=== PATIENT | female | born 1945 | race Two or more races ===

== ENCOUNTER 2020-11-30 02:28 | Emergency (ER) | payer MEDICARE, MEDICAID ==
[~2020-11-30] VITALS: Ht 152.4 cm; Wt 79.8 kg
[2020-11-30 04:51] LABS: Basophils # (auto) 0 10 ^3/uL (0-0.2); Basophils % (auto) 0.2 % (0.0-2.0); Eosinophils # (auto) 0 10 ^3/uL (0-0.8); Eosinophils % (auto) 0.3 % (0.0-7.0); Hematocrit 41.6 % (36.0-46.0); Hemoglobin 13.8 g/dL (12.2-16.2); Lymphocytes # (auto) 0.8 10 ^3/uL (0.4-5.4); Lymphocytes % (auto) 8.7 % (10.0-50.0); Mean Corpuscular Hemoglobin 28.5 pg (28.0-32.0); Mean Corpuscular Hgb Conc. 33.3 g/dL (32.0-36.0); Mean Corpuscular Volume 85.6 fL (80.0-100.0); Monocytes # (auto) 0.5 10 ^3/uL (0-1.3); Monocytes % (auto) 4.9 % (0.0-12.0); Neutrophils # (auto) 8.1 10 ^3/uL (1.6-8.6); Neutrophils % (auto) 85.9 % (37.0-80.0); Nucleated Red Blood Cells % 0.1 %; Platelet Count (auto) 190 10^3/uL (140-450); Red Blood Cells 4.86 10^6/uL (4.0-5.20); Red Cell Distribution Width 13.8 % (11.8-14.3); White Blood Cell 9.5 10^3/uL (4.4-10.8)
[2020-11-30 05:10] LABS: Albumin 3.3 g/dL (3.4-5.0); Calcium 8.6 mg/dL (8.5-10.1); Potassium 3.9 mmol/L (3.5-5.1)
[2020-11-30 05:15] LABS: BUN/Creatinine Ratio 13.9; Bilirubin, Total 0.4 mg/dL (0.2-1.0); Total Protein 7.8 g/dL (6.4-8.2)
[2020-11-30 07:00] LABS: INR 0.97 (0.9-1.15); Partial Thromboplastin Time 28.9 sec (23.0-31.2)
[2020-11-30] MEDS ORDERED: ACETAMINOPHEN 500 MG TAB PO ONE (07:15)
[2020-11-30 07:19] VITALS: BP 151/43
== END 2020-11-30 07:40 | disposition home or self-care (01) ==
LOC: ER 02:28 → EDBD 02:28 → ER 07:40
DX: R50.83 Postvaccination fever (principal); T50.Z95A Adverse effect of other vaccines and biological substances, initial encounter; T78.40XA Allergy, unspecified, initial encounter; R73.9 Hyperglycemia, unspecified; Z20.822 Contact with and (suspected) exposure to COVID-19; X58.XXXA Exposure to other specified factors, initial encounter
CPT/HCPCS: 36415; 71045; 80053; 85025; 85379; 85610; 85730; 87426; 99284; C9803; U0003

== ENCOUNTER 2022-07-15 16:54 | Inpatient (IN) | payer MEDICARE, MEDICAID ==
[~2022-07-15] VITALS: Ht 167.6 cm; Wt 100.5 kg
[2022-07-15 19:00] LABS: Basophils # (auto) 0.2 10 ^3/uL (0-0.2); Basophils % (auto) 2.4 % (0.0-2.0); Eosinophils # (auto) 0.1 10 ^3/uL (0-0.8); Eosinophils % (auto) 1.4 % (0.0-7.0); Hemoglobin 12.1 g/dL (12.2-16.2); Lymphocytes # (auto) 0.9 10 ^3/uL (0.4-5.4); Lymphocytes % (auto) 11.6 % (10.0-50.0); Mean Corpuscular Hemoglobin 27.3 pg (28.0-32.0); Mean Corpuscular Hgb Conc. 31.7 g/dL (32.0-36.0); Monocytes # (auto) 0.4 10 ^3/uL (0-1.3); Monocytes % (auto) 5.5 % (0.0-12.0); Neutrophils # (auto) 6.1 10 ^3/uL (1.6-8.6); Neutrophils % (auto) 79.1 % (37.0-80.0); Red Blood Cells 4.42 10^6/uL (4.0-5.20); Red Cell Distribution Width 13.4 % (11.8-14.3); White Blood Cell 7.6 10^3/uL (4.4-10.8)
[2022-07-15 19:03] LABS: Albumin 3.5 g/dL (3.4-5.0); BUN/Creatinine Ratio 19.4; Calcium 8.9 mg/dL (8.5-10.1); Magnesium 2.3 mg/dL (1.6-2.6); Potassium 4.7 mmol/L (3.5-5.1)
[2022-07-15 19:06] LABS: Bilirubin, Total 0.5 mg/dL (0.2-1.0); Total Protein 7.2 g/dL (6.4-8.2)
[2022-07-15 20:32] LABS: Urine Bacteria NONE SEEN /hpf (None Seen); Urine Blood Negative /uL (Negative); Urine Specific Gravity 1.006 (1.001-1.035); Urine WBC 1 /hpf (0 - 5)
[2022-07-15] MEDS ORDERED: FUROSEMIDE 40 MG/4 ML VIAL IV ONE (22:30)
[2022-07-15] MEDS ORDERED: DEXTROSE (50%) 50ML SYRG IV PRN (23:45)
[2022-07-15] MEDS ORDERED: MORPHINE SULFATE INJ 2 MG/ml SYRG IV PRN (23:45)
[2022-07-15] MEDS ORDERED: TEMAZEPAM 15 MG CAP PO PRN (23:45)
[2022-07-15] MEDS ORDERED: NITROGLYCERIN 0.4 MG SL TAB SL PRN (23:45)
[2022-07-15] MEDS ORDERED: ONDANSETRON HCL 4 MG/2 ML VIAL IV PRN (23:45)
[2022-07-16] MEDS: ACCU-CHEK COMFORT CURVE STRIP VI SCH ×3 (00:42→12:00)
[2022-07-16] MEDS: InsuLIN REG 1unit/0.01ml Soln (100units/ml) SC SCH ×3 (00:44→12:00)
[2022-07-16] MEDS: cloNIDine HCL 0.1 MG TAB PO PRN ×3 (04:35→17:30)
[2022-07-16 06:15] LABS: Basophils # (auto) 0.1 10 ^3/uL (0-0.2); Basophils % (auto) 1.2 % (0.0-2.0); Eosinophils # (auto) 0.2 10 ^3/uL (0-0.8); Eosinophils % (auto) 2.4 % (0.0-7.0); Hematocrit 35.6 % (36.0-46.0); Hemoglobin 11.8 g/dL (12.2-16.2); Lymphocytes # (auto) 2.2 10 ^3/uL (0.4-5.4); Lymphocytes % (auto) 32.2 % (10.0-50.0); Mean Corpuscular Hgb Conc. 33.1 g/dL (32.0-36.0); Mean Corpuscular Volume 84.7 fL (80.0-100.0); Monocytes # (auto) 0.6 10 ^3/uL (0-1.3); Monocytes % (auto) 9.4 % (0.0-12.0); Neutrophils # (auto) 3.7 10 ^3/uL (1.6-8.6); Neutrophils % (auto) 54.8 % (37.0-80.0); Nucleated Red Blood Cells % 0.1 %; Red Cell Distribution Width 13.2 % (11.8-14.3); White Blood Cell 6.7 10^3/uL (4.4-10.8)
[2022-07-16 06:31] LABS: Albumin 3.1 g/dL (3.4-5.0); Calcium 8.7 mg/dL (8.5-10.1); Potassium 3.5 mmol/L (3.5-5.1)
[2022-07-16 06:34] LABS: Bilirubin, Total 0.5 mg/dL (0.2-1.0); Total Protein 6.8 g/dL (6.4-8.2)
[2022-07-16] MEDS: PANTOPRAZOLE 40 MG TAB PO SCH (09:57)
[2022-07-16] MEDS ORDERED: FUROSEMIDE 40 MG TAB PO SCH (10:00)
[2022-07-16] MEDS: ENOXAPARIN SOD 30 MG/0.3 ML SYRINGE SC SCH (10:00)
[2022-07-16] MEDS: LISINOPRIL 10 MG TAB PO SCH (10:06)
[2022-07-16] MEDS: NIFEdipine ER 30 MG TAB PO SCH (10:06)
[2022-07-16] MEDS ORDERED: ATEN100T PO (18:38)
[2022-07-16] MEDS ORDERED: FURO40TA4 PO (18:38)
[2022-07-16] MEDS ORDERED: NIFE1TAB36 PO (18:38)
[2022-07-16] MEDS ORDERED: GLIM-6 PO (18:38)
[2022-07-16] MEDS ORDERED: AMLO-489 PO (18:38)
[2022-07-16] MEDS: ACETAMINOPHEN 325 MG TAB PO PRN (18:50)
[2022-07-16] MEDS ORDERED: PNEUMOCOCCAL VACC POLYS 25 MCG/0.5 ML VIAL IM ONE (19:30)
[2022-07-16 22:00] VITALS: BP 149/53
[2022-07-17] MEDS: cloNIDine HCL 0.1 MG TAB PO PRN (04:41)
[2022-07-17 05:00] VITALS: BP 170/47
[2022-07-17 08:00] VITALS: BP 161/46
[2022-07-17 09:00] VITALS: BP 161/46
[2022-07-17] MEDS: LISINOPRIL 10 MG TAB PO SCH (11:03)
[2022-07-17] MEDS: ENOXAPARIN SOD 30 MG/0.3 ML SYRINGE SC SCH (11:04)
[2022-07-17] MEDS: NIFEdipine ER 30 MG TAB PO SCH (11:04)
[2022-07-17] MEDS: PANTOPRAZOLE 40 MG TAB PO SCH (11:04)
[2022-07-17] MEDS: FUROSEMIDE 40 MG/4 ML VIAL IV SCH (11:05)
[2022-07-17 13:00] VITALS: BP 157/42
[2022-07-17 16:57] VITALS: BP 149/40
[2022-07-17 22:00] VITALS: BP 159/56
[2022-07-18 05:30] VITALS: BP 156/57
[2022-07-18 08:00] VITALS: BP 155/51
[2022-07-18 08:27] VITALS: BP 155/51
[2022-07-18] MEDS: PANTOPRAZOLE 40 MG TAB PO SCH (09:32)
[2022-07-18] MEDS: ENOXAPARIN SOD 30 MG/0.3 ML SYRINGE SC SCH (09:32)
[2022-07-18] MEDS: NIFEdipine ER 30 MG TAB PO SCH (09:32)
[2022-07-18] MEDS: LISINOPRIL 10 MG TAB PO SCH (09:32)
[2022-07-18] MEDS: FUROSEMIDE 40 MG/4 ML VIAL IV SCH (09:33)
[2022-07-18] MEDS ORDERED: hydrALAZINE HCL 20 MG/ML VL IV PRN (11:45)
[2022-07-18 12:48] VITALS: BP 172/44
[2022-07-18 13:28] VITALS: BP 154/41
[2022-07-18] MEDS: ACETAMINOPHEN 325 MG TAB PO PRN (20:27)
[2022-07-18 22:35] VITALS: BP 145/51
[2022-07-19 05:00] VITALS: BP 161/63
[2022-07-19] MEDS: cloNIDine HCL 0.1 MG TAB PO PRN (06:07)
[2022-07-19 06:37] LABS: Basophils # (auto) 0 10 ^3/uL (0-0.2); Basophils % (auto) 0.7 % (0.0-2.0); Eosinophils # (auto) 0.1 10 ^3/uL (0-0.8); Eosinophils % (auto) 1.4 % (0.0-7.0); Hematocrit 37.3 % (36.0-46.0); Hemoglobin 12.1 g/dL (12.2-16.2); Lymphocytes # (auto) 1.5 10 ^3/uL (0.4-5.4); Lymphocytes % (auto) 22.5 % (10.0-50.0); Mean Corpuscular Hemoglobin 27.5 pg (28.0-32.0); Mean Corpuscular Hgb Conc. 32.3 g/dL (32.0-36.0); Monocytes # (auto) 0.6 10 ^3/uL (0-1.3); Monocytes % (auto) 9.5 % (0.0-12.0); Neutrophils # (auto) 4.5 10 ^3/uL (1.6-8.6); Neutrophils % (auto) 65.9 % (37.0-80.0); Nucleated Red Blood Cells % 0.1 %; Red Blood Cells 4.39 10^6/uL (4.0-5.20); Red Cell Distribution Width 13.2 % (11.8-14.3); White Blood Cell 6.8 10^3/uL (4.4-10.8)
[2022-07-19 06:48] LABS: BUN/Creatinine Ratio 26.5; Calcium 9.2 mg/dL (8.5-10.1); Potassium 3.8 mmol/L (3.5-5.1)
[2022-07-19 08:00] VITALS: BP 135/48
[2022-07-19 09:00] VITALS: BP 135/48
[2022-07-19] MEDS: PANTOPRAZOLE 40 MG TAB PO SCH (11:14)
[2022-07-19] MEDS: LISINOPRIL 10 MG TAB PO SCH (11:14)
[2022-07-19] MEDS: NIFEdipine ER 30 MG TAB PO SCH (11:14)
[2022-07-19] MEDS: FUROSEMIDE 40 MG/4 ML VIAL IV SCH (11:14)
[2022-07-19] MEDS: ENOXAPARIN SOD 30 MG/0.3 ML SYRINGE SC SCH (11:15)
[2022-07-19] MEDS ORDERED: FURO40TA4 PO (12:17)
[2022-07-19 12:44] VITALS: BP 146/40
[2022-07-19 12:55] VITALS: BP 135/48
[2022-07-19] MEDS ORDERED: PNEUMOCOCCAL VACC POLYS 25 MCG/0.5 ML VIAL IM ONE ×2 (13:30→14:00)
== END 2022-07-19 14:20 | disposition home or self-care (01) | DRG 194 ==
LOC: ER 16:54 → EDBD 16:54 → TELE 23:38 → TELE-WESTW 07-16 17:12
PROVIDERS: ADMIT Nurse Practitioner; ATTEND Internal Medicine
DX: I13.0 Hypertensive heart and chronic kidney disease with heart failure and stage 1 through stage 4 chronic kidney disease, or unspecified chronic kidney disease (principal); J96.01 Acute respiratory failure with hypoxia; I50.33 Acute on chronic diastolic (congestive) heart failure; E11.22 Type 2 diabetes mellitus with diabetic chronic kidney disease; N18.30 Chronic kidney disease, stage 3 unspecified; E11.40 Type 2 diabetes mellitus with diabetic neuropathy, unspecified; Z20.822 Contact with and (suspected) exposure to COVID-19
CPT/HCPCS: 36415; 36600; 71045; 73030; 80048; 80053; 81001; 82805; 83735; 83880; 84484; 85025; 93306; 96372; 96374; G0378

== ENCOUNTER 2025-06-28 03:13 | Inpatient (IN) | payer MEDICARE, MEDICAID ==
[2025-06-28] VITALS (36 sets, daily range): BP systolic 128–182; BP diastolic 36–62; PULSE 68–100; RESP 11–99; TEMP 97.4–98.2; O2SAT 88–98
[~2025-06-28] VITALS: Ht 165.1 cm; Wt 95.2 kg
[~2025-06-28 03:13] MED LIST: AMLO1TAB22 PO; ATEN100T PO; FURO40TA4 PO; GLIM2TAB94 PO; NIFE1TAB36 PO
[2025-06-28] MEDS: methylPREDNISolone SOD SUCC 125 MG/2 ML VL IV ONE (03:25)
--- NOTE | 2025-06-28 03:28 | ED.PDOC ---
SOB-HPI HPI Comments HPI: 80 year old female presents to the emergency department with a chief complaint of shortness of breath onset today (06/28/25) about 10 minutes prior to EMS arrival. Per EMS, patient was discharged from [facility] ,5 was admitted for 5 days due to Pneumonia. Patient was on 2L O2 at home, shortness of breath was worsening, 911 was called. Upon EMS arrival, patient's O2 sat was 70% on RA, was placed on NRB, with no improvement. Patient was given Med Neb treatment, placed on C-pap, O2 improved to 80%. Grandson states patient is currently on Diuretic medication, unknown if she is on blood thinner. No other symptoms or modifying factors present at this time. Initial Vitals BP: 180/110 HR: 1014 RR: O2: 70%on RA Temp: Past Medical History: CHF, CKF, HTN, DM Past Surgical History:Denies Social History: Denies ETOH, smoking, and drug use. Medications: diuretic Allergies: NKDA HPI: Poor Historian. Patient arrives on a CPAP machine. She was transitioned to a BiPAP machine on arrival. History obtained from the nephew/family member at bedside initially. Patient completed the course of antibiotics for recent diagnosis of pneumonia. 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 Symptoms happened suddenly over a course of 5-10 minutes lower likely consistent with pulmonary edema. She is on a water pill at home and supplemental oxygen 2472 L nasal cannula. Patient was hypoxic at the scene REVIEW OF SYSTEMS: CONSTITUTIONAL: Denies acute: fever, diaphoresis, chills, generalized weakness. HEAD: Denies acute: headache, photophobia Eyes: Denies acute: Double vision, vision loss, eye pain, eye discharge. EARS: Denies acute: tinnitus, hearing loss, ear discharge, ear pain, THROAT: Denies acute: sore throat, swelling, difficulty swallowing , pain with swallowing, change in voice. NECK: Denies acute: neck pain, neck swelling, stiff neck. HEART: Denies acute : chest pain, palpitations, LUNGS: Denies acute: SOB, wheezing, cough, hemoptysis ABDOMEN: Denies acute: abdominal pain, Nausea, Vomiting, diarrhea, melena , hematemesis, hematochezia SKIN: Denies acute: rash, redness, lesions, itchiness. EXTREMITIES: Denies acute: calf pain, numbness, tingling, weakness, denies pain in extremity. Denies acute: Low back pain. Neuro: Denies acute: focal neurological deficit, motor or sensory focal neurological deficit, tremors, seizure like activity, confusion, dizziness, change in mental status, loss of bowel or bladder function, cauda equina like symptoms. : Denies acute: dysuria, hematuria, flank pain, increase in urinary frequency. PSYCH: Denies acute: hallucination, suicidal ideation, homicidal ideation. FEMALE: Denies acute: abnormal vaginal bleeding, foul odor, unusual discharge. PHYSICAL EXAM: General: -----moderate---acute distress, awake and alert. Head: normocephalic, atraumatic. Neck: supple, trachea is midline, no swelling. Throat: Normal phonation. Eyes:, no erythema, no purulent discharge, no proptosis, no icterus. Heart: regular rate, regular rhythm, no significant murmur appreciated. Lungs: Moderate respiratory distress, No wheezing, minimal rhonchi, generalized crackles. No stridors Abdomen: non tender to palpation, non distended, soft, no guarding, no rebound, + bowel sounds. Obese Neuro: Awake, Alert, oriented to name, self, situation, follows commands GCS=15. Speech is normal. Skin: no petechia, no purpura, no cyanosis, non-pale, not jaundice. Lower extremities: --1/4 bilateral - Pitting edema no deformity, no focal swelling, no calf TTP. Makes eye contact. moves all four extremities. Face: no apparent facial droop. ED COURSE: DISCLAIMER: This medical document was created using an electronic medical record system with voice recognition software and computerized dictation system. Although this document has been carefully reviewed, there might still be some phonetic and typographical errors. Occasional wrong-word or "sound-alike" substitutions may have occurred due to the inherent limitations of voice recognition software. These areas are purely typographical due to imperfections of the software programs and do not reflect any compromise in the patient's medical care. Please read the chart carefully and recognize, using context, where these substitutions have occurred. Time Seen by MD: 03:11 Reviewed notes: Medications, Allergies Information Source: Relative (GrandChild), Emergency Med Personnel Mode of Arrival: EMS Severity: Moderate Timing: Minutes Duration: Since onset Context: While Asleep PE Risk Factors: None History of: CHF, Recent URI Prehospital treatment: None Modifying Factors: Nothing Past Medical History PAST MEDICAL HISTORY: CHF, CKF, DM, HTN Surgical History: Denies all surgeries VP SOFTWARE History: No Pertinent VP SOFTWARE History Family History Family History: Reviewed,noncontributory to illness Social History Smoker: Non-Smoker Alcohol: Denies ETOH Use Drugs: Denies Drug Use Lives In: Home Was a procedure done? Was a procedure done?: No Differential Dx Differential Diagnosis: Other (DDx include ACS, unstable angina, anxiety, PE, pneumothroax, neoplasm, cardiac ischemia, COPD, asthma, CHF, pleural effusion, tobacco abuse, pneumonia, hypoxia, hypercapnia, anemia., infection/sepsis., pulmonary edema. Asthma, Cardiac tamponade, infection.) X-Ray, Labs, Meds, VS Vital Signs Date Time Temp Pulse Resp B/P (MAP) Pulse Ox O2 Delivery O2 Flow Rate FiO2 06/28/25 04:41 70 20 153/55 (87) 100 06/28/25 04:31 70 20 173/52 (92) 100 06/28/25 04:21 78 25 175/59 (97) 100 06/28/25 04:18 79 06/28/25 04:11 76 24 189/51 (97) 100 06/28/25 04:01 79 27 200/51 (100) 100 06/28/25 04:01 200/51 06/28/25 03:49 233/65 06/28/25 03:42 35 96 Bi-Pap+ 100 100 06/28/25 03:36 97.8 101 30 203/69 88 97.8 06/28/25 03:32 233/65 06/28/25 03:31 79 27 233/65 (120) 88 06/28/25 03:28 95 233/65 Facial BiPAP Mask 100 06/28/25 03:24 97.4 100 36 203/69 (113) 97.4 06/28/25 03:21 99 Lab Test 06/28/25 03:32 Range/Units White Blood Count 17.6 H 4.4-10.8 10^3/uL Red Blood Count 4.48 4.0-5.20 10^6/uL Hemoglobin 12.3 12.2-16.2 g/dL Hematocrit 38.6 36.0-46.0 % Mean Corpuscular Volume 86.2 80.0-100.0 fL Mean Corpuscular Hemoglobin 27.4 L 28.0-32.0 pg Mean Corpuscular Hemoglobin Concent 31.7 L 32.0-36.0 g/dL Red Cell Distribution Width 15.4 H 11.8-14.3 % Platelet Count 266 140-450 10^3/uL Mean Platelet Volume 10.2 6.9-10.8 fL Neutrophils (%) (Auto) 67.9 37.0-80.0 % Lymphocytes (%) (Auto) 25.2 10.0-50.0 % Monocytes (%) (Auto) 4.8 0.0-12.0 % Eosinophils (%) (Auto) 1.6 0.0-7.0 % Basophils (%) (Auto) 0.5 0.0-2.0 % Neutrophils # (Auto) 11.9 H 1.6-8.6 10 ^3/uL Lymphocytes # (Auto) 4.4 0.4-5.4 10 ^3/uL Monocytes # (Auto) 0.8 0-1.3 10 ^3/uL Eosinophils # (Auto) 0.3 0-0.8 10 ^3/uL Basophils # (Auto) 0.1 0-0.2 10 ^3/uL Nucleated Red Blood Cells 0.1 % D-Dimer, Quantitative 1.33 H 0.0-0.49 mg/L FEU Sodium Level 140 136-145 mmol/L Potassium Level 3.8 3.5-5.1 mmol/L Chloride Level 105 98-107 mmol/L Carbon Dioxide Level 23 20-31 mmol/L Anion Gap 12 5-15 Blood Urea Nitrogen 46 H 9-23 mg/dL Creatinine 2.13 H 0.550-1.02 mg/dL Glomerular Filtration Rate Calc 23 >90 mL/min BUN/Creatinine Ratio 21.6 H 10.0-20.0 Serum Glucose 206 H 74-106 mg/dL Hemoglobin A1c 5.9 H <5.7 % A1C Lactic Acid Level 1.0 0.4-2.0 mmol/L Calcium Level 9.1 8.7-10.4 mg/dL Magnesium Level 2.1 1.6-2.6 mg/dL Total Bilirubin 0.5 0.2-1.0 mg/dL Aspartate Amino Transferase (AST) 28 13-40 U/L Alanine Aminotransferase (ALT) 19 7-40 U/L Alkaline Phosphatase 133 H 46-116 U/L Troponin I High Sensitivity 49 *H </=34 ng/L B-Type Natriuretic Peptide 588.42 0-100 pg/mL Total Protein 7.7 5.7-8.2 g/dL Albumin 4.5 3.2-4.8 g/dL [place] [id number] Ph: [phone] DIAGNOSTIC IMAGING Diagnostic Imaging Report : [id number] Signed PATIENT: POONAM CUNNINGHAM ACCT: [id number] UNIT: [id number] : 1945 LOC: ER ROOM / BED: / AGE / SEX: 80 / F ADM STATUS: REG ER SERVICE [id number] ORDERING PHYSICIAN: SARAHY HOLCOMB DO PROCEDURE(s): CXRP - CHEST PORTABLE REASON: sob ORDER NUMBER(s): [id number], ACCESSION NUMBER(s): [id number] CHEST RADIOGRAPH Indication: sob Technique: Single frontal view of the chest was obtained COMPARISON: CHEST PORTABLE on DOS: 07/15/22, CXRP on DOS: 07/15/22, CHEST PORTABLE on DOS: 11/30/20 FINDINGS: Lines and Tubes: None Lungs: The patient's lower chin partially obscures the right apex. Progressive diffuse bilateral pulmonary airspace disease with consolidative features, [id number]-izsjvgg-avrj-left. Pleura: No definite effusion. No pneumothorax. Cardiomediastinal contours: Cardiomegaly. Atherosclerotic vascular disease. Bones: Unremarkable IMPRESSION: 1. Progressive diffuse pulmonary airspace disease with consolidative features, yvqvr-ydkfwql-cbnu-left. 2. Cardiomegaly. ATED BY: LEONARDO VARGAS MD DICTATED DATE/TIME: 06/28/25424 SIGNED BY: LEONARDO VARGAS MD SIGNED DATE/TIME: 06/28/25 0425 CC: Time of 1ST Reevaluation: 03:41 Reevaluation 1ST: Unchanged Time of 2ND Reevaluation: 04:20 Reevaluation 2ND: Improved Patient Education/Counseling: Other Family Education/Counseling: Diagnosis, Treatment Comments MDM: patient presented with the above HPI.---dyspnea---workup was initiated. patient was found with the above mentioned diagnosis. the following medications were ordered: please refer to order lists of meds and tests obtained by myself Dr. Holcomb. Patient ED course and VS have been stabilized. Patient has been reassessed in the ED and remained in a stable condition. Pertinent incidental findings were discussed with the patient and/or family. Patient/family voices understanding and is agreeable with plan. Patient has been observed in the ED adequate length of time to insure improvement/stability. Escalation of care considered: Consideration of escalation to observation or admission She was placed on a BiPAP. Patient was given Zosyn. DuoNeb treatment and steroids. Patient was given Lasix. Patient was started on nitroglycerin drip suspecting possible pulmonary edema. Patient was ADMITTED to the medicine team for further evaluation and treatment of their presentation. All the reports of any imaging studies that were ordered by myself were reviewed by myself. Departure 1 Departure Time of Disposition: 04:05 Impression: Primary Impression: Acute respiratory distress Additional Impressions: Pulmonary edema Elevated troponin Lung consolidation Disposition: ADMITTED INPATIENT Admit to: Tele Condition: Guarded e-Prescriptions Nifedipine (Nifedipine Er) 60 Mg Tab 1 TAB PO DAILY, #30 TAB 5 Refills Prov: LAURA GREWAL MD 07/02/25 Bumetanide (Bumetanide) 2 Mg Tab 1 TAB PO DAILY, #30 TAB 5 Refills Prov: LAURA GREWAL MD 07/02/25 Hydralazine Hcl (Hydralazine Hcl) 50 Mg Tab 1 TAB PO TID, #90 TAB 5 Refills Prov: LAURA GREWAL MD 07/02/25 Apixaban Base (ELIQUIS) 2.5 Mg Tab 2.5 MG PO BID for 30 Days, #60 TAB Prov: LAURA GREWAL MD 07/02/25 Discharged With: Self Critical Care Note Critical Care Time?: Yes (1 hr-critical care time only) Heart Score Heart Score: Heart Score Response (Comments) Value History N/A 0 EKG N/A 0 Age N/A 0 Risk Factors N/A 0 Troponin N/A 0 Total 0 I personally scribed for SARAHY HOLCOMB DO ([email or web address]) on 06/28/25 at 03:28. Electronically submitted by Carmen Leon ([email or web address]). I personally scribed for SARAHY HOLCOMB DO ([email or web address]) on 06/28/25 at 04:23. Electronically submitted by Carmen Leon ([email or web address]). I personally scribed for SARAHY HOLCOMB DO ([email or web address]) on 06/28/25 at 04:31. Electronically submitted by Carmen Leon ([email or web address]). SARAHY HOLCOMB DO Jun 28, 2025 03:28
[2025-06-28] MEDS: FUROSEMIDE 40 MG/4 ML VIAL IV ONE (03:32)
[2025-06-28] MEDS: ALBUTEROL SULF 2.5 MG/0.5ML(0.5%) NEB SOLN NEB ONE (03:42)
[2025-06-28] MEDS: IPRATROPIUM BROM 0.5 MG/2.5ML INH SOL NEB ONE (03:42)
[2025-06-28] MEDS: NITROGLYCERIN 50MG/250ML 250 ML IV ONE (03:49)
--- NOTE | 2025-06-28 04:24 | ECG ---
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
--- NOTE | 2025-06-28 04:28 | DVH ---
CHEST RADIOGRAPH Indication: sob Technique: Single frontal view of the chest was obtained COMPARISON: CHEST PORTABLE on DOS: 07/15/22, CXRP on DOS: 07/15/22, CHEST PORTABLE on DOS: 11/30/20 FINDINGS: Lines and Tubes: None Lungs: The patient's lower chin partially obscures the right apex. Progressive diffuse bilateral pulm onary airspace disease with consolidative features, pbpqb-zuzxhdf-eava-left. Pleura: No definite effusion. No pneumothorax. Cardiomediastinal contours: Cardiomegaly. Atherosclerotic vascular disease. Bones: Unremarkable IMPRESSION: 1. Progressive diffuse pulmonary airspace disease with consolidative features, lzifm-jfsavyg-sbfi-lef t. 2. Cardiomegaly.
[2025-06-28 04:31] LABS: Hematocrit 38.6 % (36.0-46.0); Hemoglobin 12.3 g/dL (12.2-16.2); Mean Corpuscular Hemoglobin 27.4 pg (28.0-32.0); Mean Corpuscular Volume 86.2 fL (80.0-100.0); Nucleated Red Blood Cells % 0.1 %
[2025-06-28 04:47] LABS: Alanine Aminotransferase 19 U/L (7-40); Albumin 4.5 g/dL (3.2-4.8); Anion Gap 12 (5-15); BUN/Creatinine Ratio 21.6 (10.0-20.0); Calcium 9.1 mg/dL (8.7-10.4); Carbon Dioxide 23 mmol/L (20-31); Chloride 105 mmol/L (98-107); Magnesium 2.1 mg/dL (1.6-2.6); Potassium 3.8 mmol/L (3.5-5.1); Sodium 140 mmol/L (136-145); Total Protein 7.7 g/dL (5.7-8.2)
[2025-06-28 04:48] LABS: Bilirubin, Total 0.5 mg/dL (0.2-1.0)
[2025-06-28] MEDS: PIPERACILLIN-TAZOB 3.375GM 100 ML IV ONE (04:56)
[2025-06-28 04:58] LABS: Alkaline Phosphatase 133 U/L (46-116); Blood Urea Nitrogen 46 mg/dL (9-23); Glucose 206 mg/dL (74-106)
[2025-06-28] MEDS ORDERED: ALBUTEROL SULF 2.5 MG/0.5ML(0.5%) NEB SOLN NEB PRN (05:00)
[2025-06-28] MEDS ORDERED: DEXTROSE (50%) 50ML SYRG IV PRN ×2 (05:00→20:30)
[2025-06-28] MEDS ORDERED: ONDANSETRON HCL 4 MG/2 ML VIAL IV PRN (05:00)
[2025-06-28] MEDS ORDERED: MORPHINE SULFATE INJ 2 MG/ml SYRG IV PRN (05:00)
[2025-06-28] MEDS ORDERED: NITROGLYCERIN 0.4 MG SL TAB SL PRN (05:00)
--- NOTE | 2025-06-28 05:01 | DVHHP2 ---
History of Present Illness Reason for Visit: Shortness for breath History of Present Illness 80-year-old female presents for evaluation of shortness for breath. Patient presents with a one day history of worsening shortness for breath. On arrival patient's blood pressure was also elevated greater than 200. No complaints of c hest pain or palpitations. No cough or fever. Patient was recently discharged from [facility] after being treated for pneumonia. Patient is currently on BiPAP. No other acute complaints. Past Medical History Diabetes mellitus, hypertension, chronic kidney disease, congestive heart failure Past Surgical History None Family History Noncontributory Smoke: No ALCOHOL: none Drugs: None Lives: with Family Review of Systems Review of Systems Review of systems are currently negative otherwise addressed in HPI. Allergies: Coded Allergies: Shellfish Allergy (Verified Allergy, Unknown, 06/28/25) Medications Current Medications Medications Dose Ordered Sig/Erwin Route Start Time Stop Time Status Last Admin Dose Admin Ceftriaxone Sodium 50 ml @ 100 mls/hr DAILY@09 IV 06/28/25 09:00 UNV Azithromycin 250 ml @ 125 mls/hr DAILY IV 06/28/25 10:00 UNV Albuterol 2.5 mg Q6HPRN PRN NEB 06/28/25 05:00 UNV Apixaban 2.5 mg BID PO 06/28/25 10:00 UNV Furosemide 20 mg BIDD IV 06/28/25 06:00 UNV Exam Vital Signs Vital Signs Date Time Temp Pulse Resp B/P (MAP) Pulse Ox O2 Delivery O2 Flow Rate FiO2 06/28/25 04:18 79 06/28/25 03:49 233/65 06/28/25 03:42 35 96 Bi-Pap+ 100 100 06/28/25 03:36 97.8 97.8 Exam Gen: 80-year-old female in moderate distress Skin: Warm, dry, normal color and texture, no rash. HEENT: Normocephalic atraumatic, mucous membranes moist and pink. Neck: Cervical and supraclavicular nodes normal without enlargement, trachea is midline, thyroid gland is normal without masses. Pulmonary: Bilateral rhonchi Cardiac: Regular rate and rhythm. No murmur Abdomen: Soft, nontender, nondistended, bowel sounds present all 4 quadrants, no guarding, no rigidity, no organomegaly. Extremities: No cyanosis, clubbing, no edema Neuro: Cranial nerves II through XII grossly intact, normal affect and speech, no focal motor deficits. Labs/Xrays Labs Test 06/28/25 03:32 Range/Units White Blood Count 17.6 H 4.4-10.8 10^3/uL Red Blood Count 4.48 4.0-5.20 10^6/uL Hemoglobin 12.3 12.2-16.2 g/dL Hematocrit 38.6 36.0-46.0 % Mean Corpuscular Volume 86.2 80.0-100.0 fL Mean Corpuscular Hemoglobin 27.4 L 28.0-32.0 pg Mean Corpuscular Hemoglobin Concent 31.7 L 32.0-36.0 g/dL Red Cell Distribution Width 15.4 H 11.8-14.3 % Platelet Count 266 140-450 10^3/uL Mean Platelet Volume 10.2 6.9-10.8 fL Neutrophils (%) (Auto) 67.9 37.0-80.0 % Lymphocytes (%) (Auto) 25.2 10.0-50.0 % Monocytes (%) (Auto) 4.8 0.0-12.0 % Eosinophils (%) (Auto) 1.6 0.0-7.0 % Basophils (%) (Auto) 0.5 0.0-2.0 % Neutrophils # (Auto) 11.9 H 1.6-8.6 10 ^3/uL Lymphocytes # (Auto) 4.4 0.4-5.4 10 ^3/uL Monocytes # (Auto) 0.8 0-1.3 10 ^3/uL Eosinophils # (Auto) 0.3 0-0.8 10 ^3/uL Basophils # (Auto) 0.1 0-0.2 10 ^3/uL Nucleated Red Blood Cells 0.1 % B-Type Natriuretic Peptide 588.42 0-100 pg/mL SEPSIS Sepsis Screen Date sepsis recognized/suspect: Jun 28, 2025 Time Sepsis recognized/suspect: 314 Recent Procedure: No On Antibiotic Therapy: No Respiratory Rate >20: Yes Heart Rate >90: Yes Temp<36 C (96.8 F) or >38.3 C: No SBP <90 or MAP <65 mmHG: No New Acute Mental Status Change: No Is the patient on CPAP, BIPAP,: No Physician Orders Collar Stitcher (06/28/25 ) Comprehensive Metabolic Panel (06/28/25 03:21) Troponin-I Hs (06/28/25 03:21) Magnesium (06/28/25 03:21) Chest Portable (06/28/25 03:21) Troponin-I Hs (06/28/25 04:21) Troponin-I Hs (06/28/25 06:21) Electrocardigram (06/28/25 04:21) Electrocardigram (06/28/25 06:21) Nitroglycerin 50mg/250ml (Tridil) (06/28/25 03:30) Piperacillin-Tazob 3.375gm (Zosyn 3.375g (06/28/25 03:30) Abg W/ Co-Ox (06/28/25 04:30) BIPAP (06/28/25 03:28) Lactic Acid W/ Reflex Order (06/28/25 04:36) Ceftriaxone 1gm/50ml D5w (Rocephin) (06/28/25 09:00) Azithromycin 500mg/ 250ml (Zithromax 50 (06/28/25 10:00) Albuterol Medneb (Ventolin Medneb) (06/28/25 05:00) Apixaban (Eliquis) (06/28/25 10:00) Furosemide Injection (Lasix Injection) (06/28/25 06:00) Hydralazine Hcl Tablet (Apresoline Table (06/28/25 06:00) Nifedipine Er (Procardia Xl (Time-Releas (06/28/25 10:00) Basic Metabolic Panel (06/29/25 04:00) Glucose Blood (Accu-Chek Comfort Curve T (06/28/25 06:00) Mild Sliding Scale Npo - Q6hr (06/28/25 06:00) Dextrose 50% Syringe (06/28/25 05:00) Admit (06/28/25 04:49) Ondansetron Hcl (Zofran) (06/28/25 05:00) Complete Blood Count (06/29/25 04:00) Echo 2d Mode Cardiac Dop (06/28/25 04:49) Condition: Critical (06/28/25 04:49) Bedrest With Bathroom Privileg (06/28/25 04:49) Nitroglycerin Sublingual (Ntrostat Subli (06/28/25 05:00) Morphine Sulfate Injection (06/28/25 05:00) Stat Ekg For Chest Pain (06/28/25 04:49) Notify Of Changes From Base (06/28/25 04:49) Java Web Engineer For 24 Hours (06/28/25 04:49) Emergency Dysrhythmia Protocol (06/28/25 04:49) Rhythm Strips Once Every Shift (06/28/25 04:49) Oxygen By Nasal Cannula (06/28/25 04:49) D-Dimer (06/28/25 04:49) Vital Signs Date Time Temp Pulse Resp B/P (MAP) Pulse Ox O2 Delivery O2 Flow Rate FiO2 06/28/25 04:18 79 06/28/25 03:49 233/65 06/28/25 03:42 35 96 Bi-Pap+ 100 100 06/28/25 03:36 97.8 101 30 203/69 88 97.8 06/28/25 03:32 233/65 06/28/25 03:28 95 233/65 Facial BiPAP Mask 100 06/28/25 03:21 99 Laboratory Tests Test 06/28/25 03:32 White Blood Count 17.6 10^3/uL (4.4-10.8) H Medications Medications Dose Ordered Sig/Erwin Route Start Time Stop Time Status Last Admin Dose Admin Albuterol 2.5 mg ONCE ONCE NEB 06/28/25 03:30 06/28/25 03:31 DC 06/28/25 03:42 2.5 MG Furosemide 40 mg ONCE ONCE IV 06/28/25 03:30 06/28/25 03:31 DC 06/28/25 03:32 40 MG Ipratropium Russell 1 mg ONCE ONCE NEB 06/28/25 03:30 06/28/25 03:31 DC 06/28/25 03:42 1 MG Methylprednisolone Sodium Succinate 125 mg ONCE ONCE IV 06/28/25 03:30 06/28/25 03:31 DC 06/28/25 03:25 125 MG Nitroglycerin 250 ml @ 1.5 mls/hr Q24H ONCE IV 06/28/25 03:30 06/29/25 03:29 06/28/25 03:49 1.5 MLS/HR Piperacillin Sod/ Tazobactam Sod 100 ml @ 33.333 mls/ hr ONCE ONCE IV 06/28/25 03:30 06/28/25 06:29 06/28/25 04:56 33.333 MLS/HR Assessment/Plan Assessment/Plan Assessment Acute hypoxic respiratory failure Community-acquired pneumonia Acute on chronic CHF Hypertensive emergency Diabetes mellitus Plan Admit the patient to ICU to the hospitalist Continue nitroglycerin drip Rocephin/azithromycin Med nebs IV Lasix Continue treatment per orders Total critical care time excluding procedures performed this 55 minutes. Plan discussed with: Patient My Orders Orders - ALEJANDRO MILLS AGACNP Procedure Category Date Status Time Lactic Acid W/ Reflex LAB 06/28/25 Logged Order 04:36 Ceftriaxone 1gm/50ml PHA 06/28/25 Logged D5w (Rocephin) 09:00 Azithromycin 500mg/ PHA 06/28/25 Logged 250ml (Zithromax 50 10:00 Albuterol Medneb PHA 06/28/25 Logged (Ventolin Medneb) 05:00 Apixaban (Eliquis) PHA 06/28/25 Logged 10:00 Furosemide Injection PHA 06/28/25 Logged (Lasix Injection) 06:00 Hydralazine Hcl PHA 06/28/25 Transmitted Tablet (Apresoline 06:00 Nifedipine Er PHA 06/28/25 Transmitted (Procardia Xl 10:00 Basic Metabolic Panel LAB 06/29/25 Verified 04:00 Glucose Blood PHA 06/28/25 Transmitted (Accu-Chek Comfort 06:00 Mild Sliding Scale PHA 06/28/25 Transmitted Npo - Q6hr 06:00 Dextrose 50% Syringe PHA 06/28/25 Transmitted 05:00 Admit ADMIT 06/28/25 Transmitted 04:49 Ondansetron Hcl PHA 06/28/25 Transmitted (Zofran) 05:00 Complete Blood Count LAB 06/29/25 Verified 04:00 Echo 2d Mode Cardiac US 06/28/25 Logged DOP 04:49 Condition: Critical ETHAN 06/28/25 In Process 04:49 Bedrest With Bathroom ETHAN 06/28/25 In Process Privileg 04:49 Nitroglycerin PHA 06/28/25 Transmitted Sublingual (Ntrostat 05:00 Morphine Sulfate PHA 06/28/25 Transmitted Injection 05:00 Stat Ekg For Chest [facility] 06/28/25 In Process Pain 04:49 Notify Of Changes [facility] 06/28/25 In Process From Base 04:49 Java Web Engineer For [facility] 06/28/25 In Process 24 Hours 04:49 Emergency Dysrhythmia [facility] 06/28/25 In Process Protocol 04:49 Rhythm Strips Once [facility] 06/28/25 In Process Every Shift 04:49 Oxygen By Nasal RT 06/28/25 Transmitted Cannula 04:49 D-Dimer LAB 06/28/25 Logged 04:49 Date of Service: Jun 28, 2025 Billing Provider: ALEJANDRO MILLS Common Visit Codes: [id number] CARE 30-74 MIN ALEJANDRO MILLS Jun 28, 2025 05:01
[2025-06-28 05:06] LABS: Base Excess -5.7 mmol/L (-2.0-3.0)
--- NOTE | 2025-06-28 06:38 | ECG ---
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
[2025-06-28] MEDS: ACCU-CHEK COMFORT CURVE STRIP VI SCH (06:42)
[2025-06-28] MEDS: InsuLIN REG 1unit/0.01ml Soln (100units/ml) SC SCH (06:43)
[2025-06-28] MEDS: FUROSEMIDE 20 MG/2 ML VIAL IV SCH ×2 (06:47→11:33)
--- NOTE | 2025-06-28 07:56 | DVHPNRES ---
Progress Note Date Seen: Jun 28, 2025 Resident Creating Document: CIELO BROWN RESIDENT Medical Necessity Reason Pt with a Central, PICC or Fol: Yes The following are medically ne: Fairchild Catheter Subjective Review of Systems Genaro Chatterjee a 80-year-old female with past medical history of heart failure, HTN, CKD, presented to the ER with reduced consciousness, she is minimally responsive. History obtained from daughter, reported hypertension and shortness of breath urged visit to the ER. She reported no chest pain/ palpitations/fever/ chills. OA vitals: tachypnea, hypertensive urgency Previous hospitalization: [facility] for worsening heart failure PMHx: heart failure, HTN, CKD Home medication: hydralazine, bumetanide Allergic history: Shellfish ROS: Constitutional: No fever and chills reported Respiratory: Shortness of breath w/o cough Cardiovascular: Chest discomfort or palpitations not reported GI: Abdominal pain, nausea, vomiting and diarrhea not reported : Dysuria and urinary frequency not reported. Musculoskeletal: Myalgias and joint pain not reported Skin: Rash and pruritus not reported Neurological: Dizziness, reduced consciousness 06/28/25: She was examined at bedside, reduced level of consciousness. Objective vital signs Vital Sign Date Time Temp Pulse Resp B/P (MAP) Pulse Ox O2 Delivery O2 Flow Rate FiO2 06/28/25 07:00 136/42 06/28/25 07:00 70 17 99 06/28/25 06:51 Bi-Pap+ 75 75 06/28/25 03:36 97.8 97.8 Total Intake and Output 06/27/25 06/27/25 06/28/25 15:00 23:00 07:00 Intake Total 13.5 ml Balance 13.5 ml medications Current Medications Medications Dose Ordered Sig/Erwin Route Start Time Stop Time Status Last Admin Dose Admin Ceftriaxone Sodium 50 ml @ 100 mls/hr DAILY@09 IV 06/28/25 09:00 Azithromycin 250 ml @ 125 mls/hr DAILY IV 06/28/25 10:00 Albuterol 2.5 mg Q6HPRN PRN NEB 06/28/25 05:00 Apixaban 2.5 mg BID PO 06/28/25 10:00 Furosemide 20 mg BIDD IV 06/28/25 06:00 06/28/25 06:47 20 MG Hydralazine HCl 50 mg Q8HR PO 06/28/25 06:00 Nifedipine 90 mg DAILY PO 06/28/25 10:00 Diagnostic Test (Pha) 1 strip Q6HR 06/28/25 06:00 06/28/25 06:42 1 STRIP Insulin Human Regular Q6HR SC 06/28/25 06:00 Dextrose 50 ml UD PRN IV 06/28/25 05:00 Ondansetron HCl 4 mg Q4HP PRN IV 06/28/25 05:00 Nitroglycerin 0.4 mg Q5MINP PRN SL 06/28/25 05:00 Morphine Sulfate 2 mg Q30M PRN IV 06/28/25 05:00 Examination General: Minimally responsive, not following commands. HEENT: Normocephalic, atraumatic, moist mucous membranes Respiratory/pulmonary: Clear lungs bilaterally, vesicular murmurs present in almost all lung meade, no associated crackles or wheezes. Cardiovascular: Normal heart sounds S1 and S2 with no associated murmurs Abdomen: Soft abdomen, no tenderness on palpation Extremities: Lower extremity swelling Skin: No rashes or pruritus, there is no sacral edema present at this time. Neurological: Intact cranial nerves with no focal neurologic deficits laboratory and microbiology Laboratory Tests 06/28/25 03:32 Test 06/28/25 03:32 Range/Units Serum Glucose 206 H 74-106 mg/dL Problem List/Assessment/Plan Problem List/Assessment/Plan Metabolic encephalopathy likely d/t below: Sepsis d/t Aspiration pneumonia OA, possible Acute hypoxic respiratory failure, due to pneumonia, Gram-negative, Gram- positive, possible Carbon dioxide narcosis, possible Labs show neutrophilic leukocytosis ABG show mild metabolic acidosis CXR shows diffuse pulmonary airspace disease with consolidative features, cardiomegaly EKG shows sinus rhythm, QT prolongation Echo ordered Oxygen supplementation, BIPAP Telemetry monitoring Abx switched to IV cefepime, doxycycline Continue med neb, methylprednisolone, pain control, Zofran Hypertensive emergency, resolving Hypotension Emergency managed with nifedipine, hydralazine, furosemide. Holding off metoprolol in context of hypotension Acute on chronic kidney disease, likely due to VMN Mild metabolic acidosis, resolving NSTEMI type 2 likely due to above Diabetes mellitus Continue sliding scale insulin Ruled out DVT D-dimer negative History of gout/depression Elevated liver enzymes DIET: Regular Liquid CODE STATUS: Goals of care discussed with patient at bedside for more than 25 minutes. Full code DISPOSITION: Med/surge Patient's status and plan discussed with the patient. Case discussed with Dr. Hager. Plan discussed with: Patient Date of Service: Jun 28, 2025 Billing Provider: ROLY HAGER MD Common Visit Codes: [id number] INP/OBS CARE(HIGH) CIELO BROWN RESIDENT Jun 28, 2025 07:56 ROLY HAGER MD Jul 05, 2025 21:27
--- NOTE | 2025-06-28 09:12 | ECG ---
[facility] Test Date: 2025-06-28 Test Time: 03:21:35 Pat Name: POONAM CUNNINGHAM Department: [facility] ED Patient ID: [id number] Room: 0214T Gender: F Surgical Resident: brandan : 1945 Requested By: SARAHY HOLCOMB Order Number: [id number] Reading MD: Rigoberto Garcia Measurements Intervals [place] Rate: 99 P: -41 TN: 207 QRS: 78 QRSD: 109 T: 0 QT: 361 QTc: 464 Interpretive Statements Sinus rhythm Borderline prolonged TN interval Consider anterior infarct Nonspecific repol abnormality, diffuse leads Baseline wander in lead(s) V5 Electronically Signed On 07-03-2025 14:20:54 PDT by Rigoberto Garcia Please click the below link to view image of tracing.
[2025-06-28] MEDS: cefTRIAXone 1GM/50ML D5W 50 ML IV SCH (09:14)
[2025-06-28] MEDS: DOXYCYCLINE 100MG/100ML 100 ML IV SCH ×2 (09:26→21:39)
[2025-06-28] MEDS ORDERED: AZITHROMYCIN 500MG/ 250ML 250 ML IV SCH (10:00)
[2025-06-28] MEDS: APIXABAN 2.5 MG TAB PO SCH (10:26)
[2025-06-28] MEDS: CEFEPIME 1GM/ 50ML 50 ML IV SCH (10:37)
[2025-06-28] MEDS ORDERED: VANCOMYCIN PER PHARMACY 0 MG IV SCH (10:45)
[2025-06-28 11:10] LABS: Base Excess -1.8 mmol/L (-2.0-3.0)
[2025-06-28 11:16] LABS: COVID19 ANTIGEN SOFIA FIA NEGATIVE (NEGATIVE)
[2025-06-28 12:37] LABS: Urine Protein, UAD 1+ (Negative)
[2025-06-28] MEDS: ISOSORBIDE DINITRATE 10 MG TAB PO ONE (14:09)
[2025-06-28] MEDS: VANCOMYCIN 1.25GM/250ML 250 ML IV ONE (14:30)
[2025-06-29] VITALS (71 sets, daily range): BP systolic 122–162; BP diastolic 37–70; PULSE 66–90; RESP 9–26; TEMP 97.6–98.3; O2SAT 90–99
[2025-06-29] MEDS: ACCU-CHEK COMFORT CURVE STRIP VI SCH
[2025-06-29] MEDS: InsuLIN REG 1unit/0.01ml Soln (100units/ml) SC SCH
--- NOTE | 2025-06-29 00:09 | DVHSR ---
APPROVED REPORT EXAM: Two-dimensional and M-mode echocardiogram with Doppler, color Doppler and Bubble Study. Blood Pressure: 136/42 mmHg INDICATION EF RISK FACTORS Obesity: Height: 5' 3", Weight: 200 DIMENSIONS LVDd6.1 (3.8-5.7cm)LA (2D)5.0 (1.9-4.0cm)Aortic Root3.1 (2.0-3.7cm) LVDs4.3 (2.5-4.0cm)LA (MM) (1.9-4.0cm)Aortic Cusp Exc1.1 (1.5-2.0cm) EF (%) 56.0 (55-70%)Rt. Atrium5.8 (1.9-4.0cm)Asc. Aorta cm IVSd1.0 (0.7-1.1cm)RV (D) (1.8-2.4cm) PWd1.1 (0.7-1.1cm) Mitral Valve MitralMitral Stenosis E wave1.10m/sMV Mean GR.mmHg A wave0.60m/sMV Peak GR.mmHg E/A ratio1.82D MVAcm2 Aortic Valve Aortic ValveAortic Stenosis V11.10m/Kindra Mean GR.15mmHg V22.70m/Kindra Peak GR.31mmHg LVOT Diameter2.3 (1.8-2.4cm)Doppler AVA1.69cm2 AI P 1/2 Qpkf944.23ms Pulmonic Valve V20.80m/s Tricuspid Valve TR Velocity3.60m/s [id number] Conclusion DILATED LA AND RA MODERATE DEGREE MR MODERATELY SEVERE AORTIC REGURGITATION POSTERIOR MV CALCIFIED LV EF IS 55% NO EFFUSION MODERATELY DILATED RV AND RA
[2025-06-29 03:44] LABS: Chloride 106 mmol/L (98-107); Potassium 4.3 mmol/L (3.5-5.1); Sodium 142 mmol/L (136-145)
[2025-06-29 03:45] LABS: Anion Gap 8 (5-15); Calcium 9.5 mg/dL (8.7-10.4); Carbon Dioxide 28 mmol/L (20-31); Hematocrit 33.5 % (36.0-46.0); Hemoglobin 10.9 g/dL (12.2-16.2); Mean Corpuscular Hemoglobin 27.6 pg (28.0-32.0); Mean Corpuscular Volume 84.9 fL (80.0-100.0); Nucleated Red Blood Cells % 0.1 %
[2025-06-29 03:50] LABS: BUN/Creatinine Ratio 21.1 (10.0-20.0); Magnesium 1.9 mg/dL (1.6-2.6)
[2025-06-29 03:51] LABS: Blood Urea Nitrogen 45 mg/dL (9-23); Glucose 128 mg/dL (74-106)
--- NOTE | 2025-06-29 11:11 | DVHPNRES ---
Progress Note Date Seen: Jun 29, 2025 Resident Creating Document: CILEO BROWN RESIDENT Medical Necessity Reason Pt with a Central, PICC or Fol: Yes The following are medically ne: Fairchild Catheter Subjective Review of Systems Brief history and review of system on admission: Genaro Chatterjee a 80-year-old female with past medical history of heart failure, HTN, CKD, presented to the ER with reduced consciousness, she is minimally responsive. History obtained from daughter, reported hypertension and shortness of breath urged visit to the ER. She reported no chest pain/ palpitations/fever/ chills. OA vitals: tachypnea, hypertensive urgency Previous hospitalization: [facility] for worsening heart failure PMHx: heart failure, HTN, CKD Home medication: hydralazine, bumetanide Allergic history: Shellfish ROS: Constitutional: No fever and chills reported Respiratory: Shortness of breath w/o cough Cardiovascular: Chest discomfort or palpitations not reported GI: Abdominal pain, nausea, vomiting and diarrhea not reported : Dysuria and urinary frequency not reported. Musculoskeletal: Myalgias and joint pain not reported Skin: Rash and pruritus not reported Neurological: Dizziness, reduced consciousness 06/28/25: Reduced level of consciousness. 06/29/25: She was examined at bedside today. her vitals have stabilized, soft blood pressure. She is downgraded from ICU to telemetry. We will continue diuresing. Objective vital signs Vital Sign Date Time Temp Pulse Resp B/P (MAP) Pulse Ox O2 Delivery O2 Flow Rate FiO2 06/29/25 10:46 72 24 137/46 (76) 95 06/29/25 10:00 Nasal Cannula* 2 28 06/29/25 08:01 98.0 98.0 Total Intake and Output 06/28/25 06/28/25 06/29/25 15:00 23:00 07:00 Intake Total 312.5 ml 250 ml 450 ml Output Total 900 ml 2000 ml 1400 ml Balance -587.5 ml -1750 ml -950 ml medications Current Medications Medications Dose Ordered Sig/Erwin Route Start Time Stop Time Status Last Admin Dose Admin Albuterol 2.5 mg Q6HPRN PRN NEB 06/28/25 05:00 Apixaban 2.5 mg BID PO 06/28/25 10:00 06/29/25 08:54 2.5 MG Hydralazine HCl 50 mg Q8HR PO 06/28/25 06:00 06/29/25 05:21 50 MG Nifedipine 90 mg DAILY PO 06/28/25 10:00 06/29/25 08:56 90 MG Ondansetron HCl 4 mg Q4HP PRN IV 06/28/25 05:00 Nitroglycerin 0.4 mg Q5MINP PRN SL 06/28/25 05:00 Morphine Sulfate 2 mg Q30M PRN IV 06/28/25 05:00 Cefepime HCl 50 ml @ 12.5 mls/hr DAILY IV 06/28/25 10:00 06/29/25 08:53 12.5 MLS/HR Furosemide 80 mg DAILY IV 06/28/25 10:30 06/29/25 08:54 80 MG Vancomycin HCl 0 ml @ 0 mls/hr UD IV 06/28/25 10:45 Doxycycline Hyclate 100 ml @ 50 mls/hr Q12H IV 06/28/25 22:00 06/29/25 08:56 50 MLS/HR Diagnostic Test (Pha) 1 strip Q6HR 06/29/25 00:00 06/29/25 05:21 1 STRIP Insulin Human Regular Q6HR SC 06/29/25 00:00 06/29/25 05:21 2 UNITS Dextrose 50 ml UD PRN IV 06/28/25 20:30 Examination General: Oriented to time place person. She is following commands. HEENT: Normocephalic, atraumatic, moist mucous membranes Respiratory/pulmonary: Distant lung sounds Cardiovascular: Normal heart sounds S1 and S2 with no associated murmurs Abdomen: Soft abdomen, no tenderness on palpation Extremities: Lower extremity swelling, reduced, grade 2 pitting edema Skin: No rashes or pruritus, there is no sacral edema present at this time. Neurological: Intact cranial nerves with no focal neurologic deficits laboratory and microbiology Laboratory Tests 06/29/25 03:07 Test 06/29/25 03:07 Range/Units Serum Glucose 128 H 74-106 mg/dL Problem List/Assessment/Plan Problem List/Assessment/Plan Metabolic encephalopathy likely d/t below: Sepsis d/t Aspiration pneumonia OA, possible Acute hypoxic respiratory failure, due to pneumonia, Gram-negative, Gram- positive, possible Acute exacerbation of Chronic HFpEF Carbon dioxide narcosis, possible Labs show neutrophilic leukocytosis OA ABG show mild metabolic acidosis CXR shows diffuse pulmonary airspace disease with consolidative features, cardiomegaly EKG shows sinus rhythm, QT prolongation Echo showed LVEF 55%, moderate MR, severe AR Oxygen supplementation, BIPAP as needed Continue IV cefepime, doxycycline Continue med neb, methylprednisolone, pain control, Zofran Telemetry monitoring, downgraded from ICU today Hypertensive emergency, resolving Hypotension Emergency managed with nifedipine, hydralazine, furosemide. Holding off metoprolol in context of hypotension Acute on chronic kidney disease, likely due to VMN Mild metabolic acidosis, resolving NSTEMI type 2 likely due to above Diabetes mellitus Continue sliding scale insulin Ruled out DVT D-dimer negative History of gout/depression Elevated liver enzymes DIET: Cardiac CODE STATUS: Goals of care discussed with patient at bedside for more than 25 minutes. Full code DISPOSITION: Med/surge Patient's status and plan discussed with the patient. Case discussed with Dr. Hager. Plan discussed with: Patient Date of Service: Jun 29, 2025 Billing Provider: ROLY HAGER MD Common Visit Codes: [id number] INP/OBS CARE(HIGH) CIELO BROWN RESIDENT Jun 29, 2025 11:11 ROLY HAGER MD Jul 05, 2025 21:49
[2025-06-29] MEDS ORDERED: VANCOMYCIN 750MG KIT 100 ML IV ONE (14:00)
--- NOTE | 2025-06-29 17:18 | DVH ---
Technique: Real-time ultrasound imaging, with color Doppler and compression of the right upper extr emity veins. Indication: Left arm swelling/ r/o dvt Comparison: None Findings: There is normal compressibility and flow augmentation in all of the imaged deep veins. There are no f illing defects. Impression: No evidence of DVT in the right upper extremity. Please note this examination was performed of the right upper extremity not the left upper extremity. If evaluation of the left upper extremity desired recommend obtaining evaluation of the left upper e xtremity.
[2025-06-30] VITALS (29 sets, daily range): BP systolic 131–173; BP diastolic 38–63; PULSE 55–93; RESP 14–23; TEMP 97.9–98.6; O2SAT 95–99
[2025-06-30 03:48] LABS: Anion Gap 11 (5-15); Calcium 9.0 mg/dL (8.7-10.4); Carbon Dioxide 30 mmol/L (20-31); Chloride 102 mmol/L (98-107); Potassium 3.6 mmol/L (3.5-5.1); Sodium 143 mmol/L (136-145)
[2025-06-30 03:54] LABS: BUN/Creatinine Ratio 25.8 (10.0-20.0); Blood Urea Nitrogen 49 mg/dL (9-23); Glucose 103 mg/dL (74-106)
[2025-06-30 03:55] LABS: Magnesium 1.8 mg/dL (1.6-2.6)
[2025-06-30] MEDS: BUMETANIDE 1 MG TAB PO SCH (09:03)
--- NOTE | 2025-06-30 14:47 | DVHPN2 ---
Subjective She is better Less short of breath 2 L nasal cannula Changes from previous H/P or p: Changes Objective Vitals Vital Signs Date Time Temp Pulse Resp B/P (MAP) Pulse Ox O2 Delivery O2 Flow Rate FiO2 06/30/25 13:41 154/46 06/30/25 13:01 64 23 99 06/30/25 08:20 Nasal Cannula 2.0 06/30/25 08:20 28 06/30/25 08:01 98.0 98.0 Intake/Output Intake and Output 06/30/25 07:00 Intake Total 1350 ml Output Total 3800 ml Balance -2450 ml Intake Oral 1350 ml Output Urine Total 3800 ml # Bowel Movements 1 General Appearance: Alert, Oriented X3, Cooperative, No acute distress Lungs: Clear to auscultation Cardiovascular: Regular rate, Normal S1, Normal S2 Abdomen: Normal bowel sounds, Soft, No tenderness Extremities: Other (2+ edema bilaterally in the legs) Medications Current Medications Medications Dose Ordered Sig/Erwin Route Start Time Stop Time Status Last Admin Dose Admin Albuterol 2.5 mg Q6HPRN PRN NEB 06/28/25 05:00 Apixaban 2.5 mg BID PO 06/28/25 10:00 06/30/25 09:04 2.5 MG Hydralazine HCl 50 mg Q8HR PO 06/28/25 06:00 06/30/25 13:41 50 MG Nifedipine 90 mg DAILY PO 06/28/25 10:00 06/30/25 09:04 90 MG Ondansetron HCl 4 mg Q4HP PRN IV 06/28/25 05:00 Nitroglycerin 0.4 mg Q5MINP PRN SL 06/28/25 05:00 Morphine Sulfate 2 mg Q30M PRN IV 06/28/25 05:00 Diagnostic Test (Pha) 1 strip Q6HR 06/29/25 00:00 06/30/25 12:00 1 STRIP Insulin Human Regular Q6HR SC 06/29/25 00:00 06/29/25 18:30 2 UNITS Dextrose 50 ml UD PRN IV 06/28/25 20:30 Bumetanide 2 mg DAILY PO 06/30/25 10:00 06/30/25 09:03 2 MG Clonidine HCl 0.1 mg Q4HP PRN PO 06/30/25 03:30 06/30/25 03:33 0.1 MG Laboratory Results Laboratory Tests 06/29/25 03:07 06/30/25 03:17 Chemistry Test 06/30/25 03:17 Calcium Level 9.0 mg/dL (8.7-10.4) Magnesium Level 1.8 mg/dL (1.6-2.6) Urinalysis Test 06/28/25 11:39 Urine Color Light-yellow (Yellow) Urine Clarity Clear (Clear) Urine pH 5.0 (5.0-9.0) Urine Specific [place] 1.008 (1.001-1.035) Urine Protein 1+ (Negative) H Urine Ketones Negative (Negative) Urine Blood Trace /uL (Negative) H Urine Nitrite Negative (Negative) Urine Bilirubin Negative (Negative) Urine Urobilinogen Normal mg/dL (Negative) Urine Leukocyte Esterase Negative /uL (Negative) Urine RBC 2 /hpf (0 - 4) Urine Microscopic WBC < 1 /HPF (0-5) Urine Squamous Epithelial Cells Few /hpf (<5) Urine Bacteria Few /hpf (None Seen) H Urine Glucose Normal mg/dL (Normal) Microbiology Microbiology Date/Time Source Procedure Growth Status 06/28/25 12:55 Blood Blood Culture - Preliminary NO GROWTH AFTER 48 HOURS OF INCUBATION. Resulted Assessment/Plan Assessment/Plan Acute on chronic heart failure, diastolic Acute hypoxic respiratory failure Paroxysmal atrial fibrillation Type 2 diabetes Chronic kidney disease, stage IV Acute on chronic chronic kidney disease Gout Plan Downgrade to tele Continue Bumex 2 mg daily Eliquis 2.5 mg twice a day Tapered down oxygen as tolerated Discussed with the patient and daughter at the bedside Monitor closely Plan discussed with: Patient, Daughter Date of Service: Jun 30, 2025 Billing Provider: LAURA GREWAL MD Common Visit Codes: [id number] INP/OBS CARE(HIGH) LAURA GREWAL MD Jun 30, 2025 14:47
[2025-07-01] VITALS (8 sets, daily range): BP systolic 137–163; BP diastolic 51–64; PULSE 60–74; RESP 16–18; TEMP 97.9–98.8; O2SAT 97–99
[2025-07-01 08:18] LABS: Chloride 100 mmol/L (98-107); Sodium 140 mmol/L (136-145)
[2025-07-01 08:19] LABS: Anion Gap 11 (5-15); Calcium 9.3 mg/dL (8.7-10.4); Carbon Dioxide 29 mmol/L (20-31); Potassium 3.5 mmol/L (3.5-5.1)
[2025-07-01 08:24] LABS: BUN/Creatinine Ratio 25.6 (10.0-20.0); Glucose 98 mg/dL (74-106)
[2025-07-01 08:25] LABS: Magnesium 1.9 mg/dL (1.6-2.6)
[2025-07-01 08:27] LABS: Blood Urea Nitrogen 45 mg/dL (9-23)
--- NOTE | 2025-07-01 10:32 | DVHINCON2 ---
Date of service: Jul 01, [address] Choudhary Reason for Consultation Acute kidney injury History of Present Illness Patient is a 80-year-old female with past medical history significant for Diabetes mellitus, hypertension, chronic kidney disease, congestive heart failure and chronic kidney disease stage IIIB is admitted for shortness of breath and worsening bilateral lower extremity edema. On admission patient found to have elevated BUN creatinine nephrology is consulted for acute kidney injury Past Medical History Diabetes mellitus, hypertension, chronic kidney disease, congestive heart failure, chronic kidney disease stage IIIB Past Surgical History Patient denies Allergies: Coded Allergies: Shellfish Allergy (Verified Allergy, Unknown, 06/28/25) Home Meds Active Scripts Furosemide (Furosemide) 40 Mg Tab, 1 TAB PO DAILY, #30 TAB Prov:SHAHAB HINTON MD 07/19/22 Reported Medications Nifedipine (Nifedipine ER) 30 Mg Tab, 1 TAB PO DAILY 07/16/22 Glimepiride (Glimepiride) 2 Mg Tab, 1 TAB PO DAILY 07/16/22 Atenolol (Atenolol) 100 Mg Tab, 0.5 TAB PO BID 07/16/22 Amlodipine Besylate (Amlodipine Besylate) 5 Mg Tab, 1 TAB PO DAILY 07/16/22 Current Medications Current Medications Medications (Trade) Dose Ordered Sig/Erwin Route PRN Reason Start Time Stop Time Status Last Admin Nifedipine (Procardia Xl (Time-Release)) 60 mg DAILY PO 07/01/25 10:00 07/01/25 09:18 Family History: Patient reports no known family medical history. Review of Systems All 12 item review of systems reviewed with the patient nonsignificant except what is mentioned in the history of present illness H&P Exam Vital Signs/I&O Vital Sign Date Time Temp Pulse Resp B/P (MAP) Pulse Ox O2 Delivery O2 Flow Rate FiO2 07/01/25 09:18 143/86 07/01/25 08:54 98.2 74 16 97 98.2 06/30/25 20:00 Nasal Cannula* 1 24 Intake and Output 06/30/25 07/01/25 19:00 07:00 Intake Total 450 ml 240 ml Output Total 800 ml 425 ml Balance -350 ml -185 ml Intake Oral 450 ml 240 ml Output Urine Total 800 ml 425 ml Physical Exam Patient lying in bed O2 nasal cannula Lungs bibasilar crackles Cardiac exam regular rate and rhythm GI soft nontender normal Extremity 2+ pitting edema Neuro nonfocal Labs/Diagnostic Data Labs/Diagnostic Data Laboratory Tests Test 07/01/25 06:40 07/01/25 06:11 07/01/25 00:20 06/30/25 17:33 Range/Units Sodium Level 140 136-145 mmol/L Potassium Level 3.5 3.5-5.1 mmol/L Chloride Level 100 98-107 mmol/L Carbon Dioxide Level 29 20-31 mmol/L Anion Gap 11 5-15 Blood Urea Nitrogen 45 H 9-23 mg/dL Creatinine 1.76 H 0.550-1.02 mg/dL Glomerular Filtration Rate Calc 29 >90 mL/min BUN/Creatinine Ratio 25.6 H 10.0-20.0 Serum Glucose 98 74-106 mg/dL Calcium Level 9.3 8.7-10.4 mg/dL Magnesium Level 1.9 1.6-2.6 mg/dL POC Glucose 113 H 110 H 112 H 70-106 mg/dl Test 06/30/25 12:39 06/30/25 05:54 06/30/25 03:17 06/29/25 23:52 Range/Units POC Glucose 124 H 118 H 113 H 70-106 mg/dl Sodium Level 143 136-145 mmol/L Potassium Level 3.6 3.5-5.1 mmol/L Chloride Level 102 98-107 mmol/L Carbon Dioxide Level 30 20-31 mmol/L Anion Gap 11 5-15 Blood Urea Nitrogen 49 H 9-23 mg/dL Creatinine 1.90 H 0.550-1.02 mg/dL Glomerular Filtration Rate Calc 26 >90 mL/min BUN/Creatinine Ratio 25.8 H 10.0-20.0 Serum Glucose 103 74-106 mg/dL Calcium Level 9.0 8.7-10.4 mg/dL Magnesium Level 1.8 1.6-2.6 mg/dL Test 06/29/25 18:05 06/29/25 11:57 06/29/25 05:18 06/29/25 03:07 Range/Units POC Glucose 134 H 139 H 140 H 70-106 mg/dl White Blood Count 5.5 # 4.4-10.8 10^3/uL Red Blood Count 3.94 L 4.0-5.20 10^6/uL Hemoglobin 10.9 L 12.2-16.2 g/dL Hematocrit 33.5 #L 36.0-46.0 % Mean Corpuscular Volume 84.9 80.0-100.0 fL Mean Corpuscular Hemoglobin 27.6 L 28.0-32.0 pg Mean Corpuscular Hemoglobin Concent 32.4 32.0-36.0 g/dL Red Cell Distribution Width 15.0 H 11.8-14.3 % Platelet Count 204 140-450 10^3/uL Mean Platelet Volume 9.4 6.9-10.8 fL Neutrophils (%) (Auto) 79.7 37.0-80.0 % Lymphocytes (%) (Auto) 14.6 10.0-50.0 % Monocytes (%) (Auto) 5.6 0.0-12.0 % Eosinophils (%) (Auto) 0.0 0.0-7.0 % Basophils (%) (Auto) 0.1 0.0-2.0 % Neutrophils # (Auto) 4.4 1.6-8.6 10 ^3/uL Lymphocytes # (Auto) 0.8 0.4-5.4 10 ^3/uL Monocytes # (Auto) 0.3 0-1.3 10 ^3/uL Eosinophils # (Auto) 0 0-0.8 10 ^3/uL Basophils # (Auto) 0 0-0.2 10 ^3/uL Nucleated Red Blood Cells 0.1 % Sodium Level 142 136-145 mmol/L Potassium Level 4.3 3.5-5.1 mmol/L Chloride Level 106 98-107 mmol/L Carbon Dioxide Level 28 20-31 mmol/L Anion Gap 8 5-15 Blood Urea Nitrogen 45 H 9-23 mg/dL Creatinine 2.13 H 0.550-1.02 mg/dL Glomerular Filtration Rate Calc 23 >90 mL/min BUN/Creatinine Ratio 21.1 H 10.0-20.0 Serum Glucose 128 H 74-106 mg/dL Calcium Level 9.5 8.7-10.4 mg/dL Magnesium Level 1.9 1.6-2.6 mg/dL Random Vancomycin Level 14.5 H 5-10 ug/mL Test 06/28/25 23:40 06/28/25 12:07 06/28/25 11:39 06/28/25 10:57 Range/Units POC Glucose 142 H 214 H 70-106 mg/dl Urine Color Light-yellow Yellow Urine Clarity Clear Clear Urine pH 5.0 5.0-9.0 Urine Specific [place] 1.008 1.001-1.035 Urine Protein 1+ H Negative Urine Ketones Negative Negative Urine Blood Trace H Negative /uL Urine Nitrite Negative Negative Urine Bilirubin Negative Negative Urine Urobilinogen Normal Negative mg/dL Urine Leukocyte Esterase Negative Negative /uL Urine RBC 2 0 - 4 /hpf Urine Microscopic WBC < 1 0-5 /HPF Urine Squamous Epithelial Cells Few <5 /hpf Urine Bacteria Few H None Seen /hpf Urine Glucose Normal Normal mg/dL Blood Gas Specimen Type Arterial Blood Gas Sample Site Right radial Blood Gas Patient Temperature 37.0 Arterial Blood Date Drawn [id number] Arterial Blood pH 7.372 7.350-7.450 Arterial Blood Partial Pressure CO2 41.2 32.0-45.0 mmHg Arterial Blood Partial Pressure O2 73.3 L 83.0-108.0 mmHg Arterial Blood HCO3 23.4 21.0-28.0 mmol/L Arterial Blood Oxygen Saturation 95.0 94.0-98.0 % Arterial Blood Base Excess -1.8 -2.0-3.0 mmol/L Arterial Blood Oxyhemoglobin 94.0 94.0-98.0 % Arterial Blood Carboxyhemoglobin 0.6 0.5-1.5 % Arterial Blood Methemoglobin 0.5 0.0-1.5 % Riky Test Yes Blood Gas Total Hemoglobin 11.80 L 12.0-16.0 g/dL Blood Gas Liter Flow 4.00 Blood Gas Modality Nasal cannula FiO2 % 36.0 Test 06/28/25 10:38 06/28/25 07:56 06/28/25 05:32 06/28/25 04:56 Range/Units Influenza Type A Antigen Negative Negative Influenza Type B Antigen Negative Negative SARS-CoV-2 Antigen (Rapid) Negative NEGATIVE Troponin I High Sensitivity 66 *H 51 *H </=34 ng/L Thyroid Stimulating Hormone (TSH) 1.15 0.55-4.78 uIU/mL Blood Gas Specimen Type Arterial Blood Gas Sample Site Right radial Blood Gas Patient Temperature 37.0 Arterial Blood Date Drawn [id number] Arterial Blood pH 7.301 L 7.350-7.450 Arterial Blood Partial Pressure CO2 42.2 32.0-45.0 mmHg Arterial Blood Partial Pressure O2 158.2 H 83.0-108.0 mmHg Arterial Blood HCO3 20.3 L 21.0-28.0 mmol/L Arterial Blood Oxygen Saturation 99.1 H 94.0-98.0 % Arterial Blood Base Excess -5.7 L -2.0-3.0 mmol/L Arterial Blood Oxyhemoglobin 97.7 94.0-98.0 % Arterial Blood Carboxyhemoglobin 0.7 0.5-1.5 % Arterial Blood Methemoglobin 0.7 0.0-1.5 % Riky Test Yes Blood Gas Total Hemoglobin 11.70 L 12.0-16.0 g/dL Blood Gas Set Respiration Rate 12.0 Blood Gas Modality Mask - bipap Blood Gas Spontaneous Rate 21 FiO2 % 100.0 Blood Gas EPAP 8 Blood Gas IPAP 18 Test 06/28/25 03:32 Range/Units White Blood Count 17.6 H 4.4-10.8 10^3/uL Red Blood Count 4.48 4.0-5.20 10^6/uL Hemoglobin 12.3 12.2-16.2 g/dL Hematocrit 38.6 36.0-46.0 % Mean Corpuscular Volume 86.2 80.0-100.0 fL Mean Corpuscular Hemoglobin 27.4 L 28.0-32.0 pg Mean Corpuscular Hemoglobin Concent 31.7 L 32.0-36.0 g/dL Red Cell Distribution Width 15.4 H 11.8-14.3 % Platelet Count 266 140-450 10^3/uL Mean Platelet Volume 10.2 6.9-10.8 fL Neutrophils (%) (Auto) 67.9 37.0-80.0 % Lymphocytes (%) (Auto) 25.2 10.0-50.0 % Monocytes (%) (Auto) 4.8 0.0-12.0 % Eosinophils (%) (Auto) 1.6 0.0-7.0 % Basophils (%) (Auto) 0.5 0.0-2.0 % Neutrophils # (Auto) 11.9 H 1.6-8.6 10 ^3/uL Lymphocytes # (Auto) 4.4 0.4-5.4 10 ^3/uL Monocytes # (Auto) 0.8 0-1.3 10 ^3/uL Eosinophils # (Auto) 0.3 0-0.8 10 ^3/uL Basophils # (Auto) 0.1 0-0.2 10 ^3/uL Nucleated Red Blood Cells 0.1 % D-Dimer, Quantitative 1.33 H 0.0-0.49 mg/L FEU Sodium Level 140 136-145 mmol/L Potassium Level 3.8 3.5-5.1 mmol/L Chloride Level 105 98-107 mmol/L Carbon Dioxide Level 23 20-31 mmol/L Anion Gap 12 5-15 Blood Urea Nitrogen 46 H 9-23 mg/dL Creatinine 2.13 H 0.550-1.02 mg/dL Glomerular Filtration Rate Calc 23 >90 mL/min BUN/Creatinine Ratio 21.6 H 10.0-20.0 Serum Glucose 206 H 74-106 mg/dL Hemoglobin A1c 5.9 H <5.7 % A1C Lactic Acid Level 1.0 0.4-2.0 mmol/L Calcium Level 9.1 8.7-10.4 mg/dL Magnesium Level 2.1 1.6-2.6 mg/dL Total Bilirubin 0.5 0.2-1.0 mg/dL Aspartate Amino Transferase (AST) 28 13-40 U/L Alanine Aminotransferase (ALT) 19 7-40 U/L Alkaline Phosphatase 133 H 46-116 U/L Troponin I High Sensitivity 49 *H </=34 ng/L B-Type Natriuretic Peptide 588.42 0-100 pg/mL Total Protein 7.7 5.7-8.2 g/dL Albumin 4.5 3.2-4.8 g/dL Microbiology Date/Time Source Procedure Growth Status 06/28/25 10:09 Nose MRSA Screen - Final Complete Assessment Acute kidney injury superimposed Chronic Kidney Disease stage IIIB secondary hemodynamic mediated Acute on chronic Congestive heart failure exacerbation Fluid overload Hypertension Diabetes mellitus type 2 Anemia of chronic kidney disease Recommendations Closely monitor fluid and electrolytes Avoid nephrotoxic medication Strict I&Os I agree with IV diuresis Check urine electrolytes and protein excretion Check kidney ultrasound Insulin sliding scale Blood pressure control Renal diet We will continue to follow Patient seen and examined by myself. I discussed my plan of care with the patient and primary nurse at the bedside I would like to thank Dr. Choudhary Plan discussed with: Patient NATHAN ASKEW MD Jul 01, 2025 10:32
--- NOTE | 2025-07-01 11:22 | DVH ---
INDICATION: kaylynn TECHNIQUE: Multiple real-time sonographic images of the kidneys and bladder were obtained. COMPARISON: None FINDINGS: RIGHT kidney measures 10.5 cm in length. No hydronephrosis. LEFT kidney measures 9.8 cm in length. No hydronephrosis. Increased echogenicity bilateral kidneys. Fairchild catheter in the urinary bladder. IMPRESSION: Increased echogenicity of bilateral kidneys can be seen in chronic medical renal disease.
[2025-07-01 13:26] LABS: Protein, Urine 21.8 mg/dL (1-14)
--- NOTE | 2025-07-01 13:52 | DVHPN2 ---
Subjective She is better Less short of breath 1 L nasal cannula Changes from previous H/P or p: Changes Objective Vitals Vital Signs Date Time Temp Pulse Resp B/P (MAP) Pulse Ox O2 Delivery O2 Flow Rate FiO2 07/01/25 09:18 143/86 07/01/25 08:54 98.2 74 16 97 98.2 07/01/25 08:00 Nasal Cannula* 1 24 Intake/Output Intake and Output 07/01/25 07:00 Intake Total 690 ml Output Total 1225 ml Balance -535 ml Intake Oral 690 ml Output Urine Total 1225 ml General Appearance: Alert, Oriented X3, Cooperative, No acute distress Lungs: Clear to auscultation Cardiovascular: Regular rate, Normal S1, Normal S2 Abdomen: Normal bowel sounds, Soft, No tenderness Extremities: Other (2+ edema bilaterally in the legs) Medications Current Medications Medications Dose Ordered Sig/Erwin Route Start Time Stop Time Status Last Admin Dose Admin Albuterol 2.5 mg Q6HPRN PRN NEB 06/28/25 05:00 Cancel Apixaban 2.5 mg BID PO 06/28/25 10:00 07/01/25 09:18 2.5 MG Hydralazine HCl 50 mg Q8HR PO 06/28/25 06:00 07/01/25 05:41 50 MG Ondansetron HCl 4 mg Q4HP PRN IV 06/28/25 05:00 Nitroglycerin 0.4 mg Q5MINP PRN SL 06/28/25 05:00 Morphine Sulfate 2 mg Q30M PRN IV 06/28/25 05:00 Diagnostic Test (Pha) 1 strip Q6HR 06/29/25 00:00 07/01/25 12:00 1 STRIP Insulin Human Regular Q6HR SC 06/29/25 00:00 06/29/25 18:30 2 UNITS Dextrose 50 ml UD PRN IV 06/28/25 20:30 Bumetanide 2 mg DAILY PO 06/30/25 10:00 07/01/25 09:17 2 MG Clonidine HCl 0.1 mg Q4HP PRN PO 06/30/25 03:30 06/30/25 03:33 0.1 MG Nifedipine 60 mg DAILY PO 07/01/25 10:00 07/01/25 09:18 60 MG Laboratory Results Laboratory Tests 06/29/25 03:07 07/01/25 06:40 Chemistry Test 07/01/25 06:40 Calcium Level 9.3 mg/dL (8.7-10.4) Magnesium Level 1.9 mg/dL (1.6-2.6) Phosphorus Level 3.7 mg/dL (2.4-5.1) Urinalysis Test 06/28/25 11:39 07/01/25 00:00 Urine Color Light-yellow (Yellow) Urine Clarity Clear (Clear) Urine pH 5.0 (5.0-9.0) Urine Specific [place] 1.008 (1.001-1.035) Urine Protein 1+ (Negative) H Urine Ketones Negative (Negative) Urine Blood Trace /uL (Negative) H Urine Nitrite Negative (Negative) Urine Bilirubin Negative (Negative) Urine Urobilinogen Normal mg/dL (Negative) Urine Leukocyte Esterase Negative /uL (Negative) Urine RBC 2 /hpf (0 - 4) Urine Microscopic WBC < 1 /HPF (0-5) Urine Squamous Epithelial Cells Few /hpf (<5) Urine Bacteria Few /hpf (None Seen) H Urine Glucose Normal mg/dL (Normal) Urine Creatinine 22.96 mg/dL (30.0-125.0) L Urine Protein/Creatinine Ratio 0.95 Urine Sodium 90 mmol/L (40-220) Urine Total Protein 21.8 mg/dL (1-14) H Microbiology Microbiology Date/Time Source Procedure Growth Status 06/28/25 12:55 Blood Blood Culture - Preliminary NO GROWTH AFTER 72 HOURS OF INCUBATION. Resulted 06/28/25 10:09 Nose MRSA Screen - Final Complete Assessment/Plan Assessment/Plan Acute on chronic heart failure, diastolic Acute hypoxic respiratory failure Paroxysmal atrial fibrillation Type 2 diabetes Chronic kidney disease, stage IV Acute on chronic chronic kidney disease Gout Plan Downgrade to tele Continue Bumex 2 mg daily Eliquis 2.5 mg twice a day Tapered down oxygen as tolerated Discussed with the patient and daughter at the bedside Monitor closely 07/01/2025: Discontinue Fairchild catheter Physical therapy evaluation Out of bed as tolerated Tapered down the oxygen as tolerated Continue Bumex 2 mg daily Eliquis Monitor closely Plan discussed with: Patient My Orders Orders - LAURA GREWAL MD Procedure Category Date Status Time Pt Request For Service PT 06/30/25 Logged 14:47 Nifedipine Er PHA 07/01/25 In Process (Procardia Xl 10:00 Discontinue Fairchild ETHAN 07/01/25 In Process Catheter 10:10 Pt Request For Service PT 07/01/25 Logged 10:11 *Dr. [facility] CONS 07/01/25 Transmitted -[place] 11:20 Date of Service: Jul 01, 2025 Billing Provider: LAURA GREWAL MD Common Visit Codes: [id number] INP/OBS CARE(HIGH) LAURA GREWAL MD Jul 01, 2025 13:52
[2025-07-02] VITALS (7 sets, daily range): BP systolic 147–169; BP diastolic 58–75; PULSE 65–70; RESP 16–20; TEMP 97.6–98.4; O2SAT 95–99
[2025-07-02 07:38] LABS: Anion Gap 10 (5-15); Calcium 9.5 mg/dL (8.7-10.4); Carbon Dioxide 29 mmol/L (20-31); Chloride 101 mmol/L (98-107); Potassium 3.7 mmol/L (3.5-5.1); Sodium 140 mmol/L (136-145)
[2025-07-02 07:43] LABS: Glucose 92 mg/dL (74-106)
[2025-07-02 07:44] LABS: BUN/Creatinine Ratio 26.5 (10.0-20.0); Blood Urea Nitrogen 43 mg/dL (9-23); Magnesium 1.9 mg/dL (1.6-2.6)
[2025-07-02] MEDS ORDERED: APIX2.5T PO ×2 (10:45→11:08)
[2025-07-02] MEDS ORDERED: NIFE1TAB30 PO ×2 (10:45→11:08)
[2025-07-02] MEDS ORDERED: BUMEX2MG PO (10:45)
[2025-07-02] MEDS ORDERED: HYDR50TA47 PO ×2 (10:45→11:08)
[2025-07-02] MEDS ORDERED: BUME2TAB5 PO ×2 (10:48→11:08)
--- NOTE | 2025-07-02 10:52 | DVHDS2 ---
Discharge Summary Date of Admission Jun 28, 2025 at 04:49 Date of Discharge: Jul 02, 2025 Labs/Diagnostic Data: Laboratory Results Test 07/02/25 06:15 07/02/25 05:58 07/01/25 14:25 07/01/25 06:40 POC Glucose 106 mg/dl (70-106) Sodium Level 140 mmol/L (136-145) Potassium Level 3.7 mmol/L (3.5-5.1) Chloride Level 101 mmol/L (98-107) Carbon Dioxide Level 29 mmol/L (20-31) Anion Gap 10 (5-15) Blood Urea Nitrogen 43 mg/dL (9-23) Creatinine 1.62 mg/dL (0.550-1.02) Glomerular Filtration Rate Calc 32 mL/min (>90) BUN/Creatinine Ratio 26.5 (10.0-20.0) Serum Glucose 92 mg/dL (74-106) Calcium Level 9.5 mg/dL (8.7-10.4) Magnesium Level 1.9 mg/dL (1.6-2.6) Phosphorus Level 3.7 mg/dL (2.4-5.1) Test 07/01/25 00:00 06/29/25 03:07 06/28/25 11:39 06/28/25 10:57 Urine Creatinine 22.96 mg/dL (30.0-125.0) Urine Protein/Creatinine Ratio 0.95 Urine Sodium 90 mmol/L (40-220) Urine Total Protein 21.8 mg/dL (1-14) White Blood Count 5.5 10^3/uL (4.4-10.8) Red Blood Count 3.94 10^6/uL (4.0-5.20) Hemoglobin 10.9 g/dL (12.2-16.2) Hematocrit 33.5 % (36.0-46.0) Mean Corpuscular Volume 84.9 fL (80.0-100.0) Mean Corpuscular Hemoglobin 27.6 pg (28.0-32.0) Mean Corpuscular Hemoglobin Concent 32.4 g/dL (32.0-36.0) Red Cell Distribution Width 15.0 % (11.8-14.3) Platelet Count 204 10^3/uL (140-450) Mean Platelet Volume 9.4 fL (6.9-10.8) Neutrophils (%) (Auto) 79.7 % (37.0-80.0) Lymphocytes (%) (Auto) 14.6 % (10.0-50.0) Monocytes (%) (Auto) 5.6 % (0.0-12.0) Eosinophils (%) (Auto) 0.0 % (0.0-7.0) Basophils (%) (Auto) 0.1 % (0.0-2.0) Neutrophils # (Auto) 4.4 10 ^3/uL (1.6-8.6) Lymphocytes # (Auto) 0.8 10 ^3/uL (0.4-5.4) Monocytes # (Auto) 0.3 10 ^3/uL (0-1.3) Eosinophils # (Auto) 0 10 ^3/uL (0-0.8) Basophils # (Auto) 0 10 ^3/uL (0-0.2) Nucleated Red Blood Cells 0.1 % Random Vancomycin Level 14.5 ug/mL (5-10) Urine Color Light-yellow (Yellow) Urine Clarity Clear (Clear) Urine pH 5.0 (5.0-9.0) Urine Specific [place] 1.008 (1.001-1.035) Urine Protein 1+ (Negative) Urine Ketones Negative (Negative) Urine Blood Trace /uL (Negative) Urine Nitrite Negative (Negative) Urine Bilirubin Negative (Negative) Urine Urobilinogen Normal mg/dL (Negative) Urine Leukocyte Esterase Negative /uL (Negative) Urine RBC 2 /hpf (0 - 4) Urine Microscopic WBC < 1 /HPF (0-5) Urine Squamous Epithelial Cells Few /hpf (<5) Urine Bacteria Few /hpf (None Seen) Urine Glucose Normal mg/dL (Normal) Blood Gas Specimen Type Arterial Blood Gas Sample Site Right radial Blood Gas Patient Temperature 37.0 Arterial Blood Date Drawn [id number] Arterial Blood pH 7.372 (7.350-7.450) Arterial Blood Partial Pressure CO2 41.2 mmHg (32.0-45.0) Arterial Blood Partial Pressure O2 73.3 mmHg (83.0-108.0) Arterial Blood HCO3 23.4 mmol/L (21.0-28.0) Arterial Blood Oxygen Saturation 95.0 % (94.0-98.0) Arterial Blood Base Excess -1.8 mmol/L (-2.0-3.0) Arterial Blood Oxyhemoglobin 94.0 % (94.0-98.0) Arterial Blood Carboxyhemoglobin 0.6 % (0.5-1.5) Arterial Blood Methemoglobin 0.5 % (0.0-1.5) Riky Test Yes Blood Gas Total Hemoglobin 11.80 g/dL (12.0-16.0) Blood Gas Liter Flow 4.00 Blood Gas Modality Nasal cannula FiO2 % 36.0 Test 06/28/25 10:38 06/28/25 07:56 06/28/25 04:56 06/28/25 03:32 Influenza Type A Antigen Negative (Negative) Influenza Type B Antigen Negative (Negative) SARS-CoV-2 Antigen (Rapid) Negative (NEGATIVE) Troponin I High Sensitivity 66 ng/L (</=34) Thyroid Stimulating Hormone (TSH) 1.15 uIU/mL (0.55-4.78) Blood Gas Set Respiration Rate 12.0 Blood Gas Spontaneous Rate 21 Blood Gas EPAP 8 Blood Gas IPAP 18 D-Dimer, Quantitative 1.33 mg/L FEU (0.0-0.49) Hemoglobin A1c 5.9 % A1C (<5.7) Lactic Acid Level 1.0 mmol/L (0.4-2.0) Total Bilirubin 0.5 mg/dL (0.2-1.0) Aspartate Amino Transferase (AST) 28 U/L (13-40) Alanine Aminotransferase (ALT) 19 U/L (7-40) Alkaline Phosphatase 133 U/L (46-116) B-Type Natriuretic Peptide 588.42 pg/mL (0-100) Total Protein 7.7 g/dL (5.7-8.2) Albumin 4.5 g/dL (3.2-4.8) Other Laboratory Tests 07/02/25 05:58 06/29/25 03:07 Brief Hx & Hospital Course: Issues: Acute on chronic heart failure, diastolic Acute hypoxic respiratory failure Paroxysmal atrial fibrillation Type 2 diabetes Chronic kidney disease, stage IV Acute on chronic chronic kidney disease Gout 80-year-old female who was admitted for fluid overload and acute respiratory failure requiring diuresis with IV diuretics She was on oxygen but her oxygen requirements improved with diuresis She was continue on home medications Her blood pressure is better controlled now Nephrology saw the patient and recommended to continue Bumex and nifedipine ER The patient is stable for discharge now She is on 1 L nasal cannula now She was educated about fluid and salt restriction Follow up with her primary care physician as soon as possible Discharge medications include Bumex 2 mg daily and nifedipine ER 60 mg daily and hydralazine 50 mg 3 times a day Condition at Discharge: Stable Final Diagnosis/Problems List Acute on chronic heart failure, diastolic Acute hypoxic respiratory failure Paroxysmal atrial fibrillation Type 2 diabetes Chronic kidney disease, stage IV Acute on chronic chronic kidney disease Gout Discharge Disposition: Home SNF Discharge Will this Physician continue t: No Discharge Instruct/Medications Diet: Consistent carbohydrate, Cardiac 2g Na,low cholest Activity: Light activity Follow Up/Referral: PCP ESTEFANI Medications: Bumex 2 mg daily Nifedipine ER 60 mg daily Eliquis 2.5 mg twice a day Hydralazine 50 mg 3 times a day Discontinue atenolol Discontinue amlodipine Scheduled Amlodipine Besylate (Amlodipine Besylate), 1 TAB PO DAILY, (Reported) Apixaban Base (Eliquis), 2.5 MG PO BID Atenolol (Atenolol), 0.5 TAB PO BID, (Reported) Bumetanide (Bumetanide), 1 TAB PO DAILY Furosemide (Furosemide), 1 TAB PO DAILY Glimepiride (Glimepiride), 1 TAB PO DAILY, (Reported) Hydralazine Hcl (Hydralazine Hcl), 1 TAB PO TID Nifedipine (Nifedipine ER), 1 TAB PO DAILY, (Reported) Nifedipine (Nifedipine Er), 1 TAB PO DAILY Discharge Statement: "Patient was advised to return to the ER or call 911 if any headaches, dizziness, shortness of breath, chest pain, abdominal pain, bleeding, fevers, or worsening of medical condition. Patient was counseled about treatment plan, medications, possible side effects, patientverbalized understanding. All questions were answered to the best of my ability. This discharge took greater then 30 minutes in planning, reviewing documentation, counseling the patient, and discussing with other team members." ASSESSMENT ASSESSMENT Assessment Acute on chronic heart failure, diastolic Acute hypoxic respiratory failure Paroxysmal atrial fibrillation Type 2 diabetes Chronic kidney disease, stage IV Acute on chronic chronic kidney disease Gout Date of Service: Jul 02, 2025 Billing Provider: LAURA GREWAL MD Common Visit Codes: [id number] DISCH DAY >30min LAURA GREWAL MD Jul 02, 2025 10:52
[2025-07-02] MEDS: ACETAMINOPHEN 325 MG TAB PO PRN (11:34)
--- NOTE | 2025-07-02 18:18 | DVHPN2 ---
Progress Note Date Seen: Jul 02, 2025 Medical Necessity Reason Pt with a Central, PICC or Fol: Yes The following are medically ne: Fairchild Catheter Subjective Patient reports: No new complaints, Feels better Objective vital signs Vital Sign Date Time Temp Pulse Resp B/P (MAP) Pulse Ox O2 Delivery O2 Flow Rate FiO2 07/02/25 13:00 97.6 65 16 147/75 (99) 95 97.6 07/02/25 10:00 Nasal Cannula* 1 24 Total Intake and Output 07/01/25 07/01/25 07/02/25 15:00 23:00 07:00 Intake Total 450 ml 900 ml Balance 450 ml 900 ml medications Current Medications Medications Dose Ordered Sig/Erwin Route Start Time Stop Time Status Last Admin Dose Admin Albuterol 2.5 mg Q6HPRN PRN NEB 06/28/25 05:00 Cancel laboratory and microbiology Laboratory Tests 07/02/25 05:58 06/29/25 03:07 Test 07/02/25 05:58 Range/Units Serum Glucose 92 74-106 mg/dL Microbiology Date/Time Source Procedure Growth Status 06/28/25 12:55 Blood Blood Culture - Preliminary NO GROWTH AFTER 72 HOURS OF INCUBATION. Resulted 06/28/25 10:09 Nose MRSA Screen - Final Complete Problem List/Assessment/Plan Problem List/Assessment/Plan Acute kidney injury superimposed Chronic Kidney Disease stage IIIB secondary hemodynamic mediated HTN emergency Acute on chronic Congestive heart failure exacerbation Fluid overload Hypertension Diabetes mellitus type 2 Anemia of chronic kidney disease recs need strict bp control renal function stable Plan discussed with: Patient, Daughter Dietary Evaluation Review Comments: 1) Initiate Glucerna qd 2) Encourage optimal PO intake 3) Refer to outpatient RD/[facility] for weight management 4) Follow-up with cardiology and pulmonology 5) Continue to monitor I&O, labs, and skin integrity Expected Outcomes/Goals: 1) appetite and labs to improve 2) GI symptoms to resolve 3) f/u in 3-5 days WILIAN PAZ MD Jul 02, 2025 18:18
== END 2025-07-02 15:00 | disposition home or self-care (01) | DRG 871 ==
LOC: EDBD 03:13 → ER 03:13 → OVERFLOW 04:49 → ICU WEST 16:43 → TELE-CENTR 06-30 16:27
PROVIDERS: ADMIT Internal Medicine Geriatric Medicine; ATTEND Internal Medicine Geriatric Medicine
PROC: 5A09357 Assistance with Respiratory Ventilation, Less than 24 Consecutive Hours, Continuous Positive Airway Pressure (ICD-10-PCS; principal; 2025-06-28)
DX: A41.9 Sepsis, unspecified organism (principal); G93.41 Metabolic encephalopathy; J96.01 Acute respiratory failure with hypoxia; J15.69 Pneumonia due to other Gram-negative bacteria; J15.9 Unspecified bacterial pneumonia; J69.0 Pneumonitis due to inhalation of food and vomit; I21.A1 Myocardial infarction type 2; N17.0 Acute kidney failure with tubular necrosis; I50.33 Acute on chronic diastolic (congestive) heart failure; I16.1 Hypertensive emergency; E87.20 Acidosis, unspecified; I13.0 Hypertensive heart and chronic kidney disease with heart failure and stage 1 through stage 4 chronic kidney disease, or unspecified chronic kidney disease; N18.4 Chronic kidney disease, stage 4 (severe); I48.0 Paroxysmal atrial fibrillation; M10.9 Gout, unspecified; D63.1 Anemia in chronic kidney disease; Z91.013 Allergy to seafood
CPT/HCPCS: 36415; 36600; 71045; 76775; 80048; 80053; 80202; 81001; 82306; 82570; 82805; 82962; 83036; 83605; 83735; 83880; 83970; 84100; 84156; 84300; 84443; 84484; 85025; 85379; 87040; 87070; 87081; 87205; 87426; 87804; 93005; 93306; 93971; 94640; 94660; 96374; 96375; 97163; G0378; J1815; J2543